=== PATIENT | male | born 1950 ===

== ENCOUNTER → 2017-07-29 08:27 | Outpatient (CLI) | payer OTHER ==
[~2017-07-29] VITALS: Ht 152.4 cm; Wt 97.1 kg
[~2017-07-29 08:27] MED LIST: MILLIPRED5 MG
== END | disposition home or self-care (01) ==
LOC: PPHC 08:27
DX: J06.9 Acute upper respiratory infection, unspecified (principal)

== ENCOUNTER → 2017-08-04 17:08 | Outpatient (CLI) | payer OTHER | END | disposition home or self-care (01) | LOC: PPHC 17:08 | DX: R05 Cough (principal) ==